=== PATIENT | female | born 1980 | race African-American/Black ===

== ENCOUNTER 2019-01-20 14:08 | Emergency (ER) | payer SELFPAY ==
[~2019-01-20] VITALS: Ht 170.2 cm; Wt 136.1 kg
[2019-01-20 14:14] VITALS: BP 179/109
[2019-01-20] MEDS ORDERED: IBUPROFEN 400 MG TABLET. PO ONE (14:45)
--- NOTE | 2019-01-20 16:24 | PHYS DOC ---
Past Medical History Past Medical History: Hypertension Past Surgical History: Other Additional Past Surgical Histo: ABD MASS REMOVED, RIGHT KNEE TORN MENISCUS Alcohol Use: None Drug Use: None Adult General Chief Complaint Chief Complaint: MECHANICAL FALL HPI HPI Patient is a 38 year old [f__sex] who presents with [] Review of Systems Review of Systems Constitutional: Denies fever or chills [] Eyes: Denies change in visual acuity, redness, or eye pain [] HENT: Denies nasal congestion or sore throat [] Respiratory: Denies cough or shortness of breath [] Cardiovascular: No additional information not addressed in HPI [] GI: Denies abdominal pain, nausea, vomiting, bloody stools or diarrhea [] : Denies dysuria or hematuria [] Musculoskeletal: Denies back pain or joint pain [] Integument: Denies rash or skin lesions [] Neurologic: Denies headache, focal weakness or sensory changes [] Endocrine: Denies polyuria or polydipsia [] All other systems were reviewed and found to be within normal limits, except as documented in this note. Current Medications Current Medications Current Medications Medications (Trade) Dose Ordered Sig/Estephania Start Time Stop Time Status Last Admin Dose Admin Ibuprofen (Motrin) 600 mg 1X ONCE 01/20/19 14:45 01/20/19 14:47 DC 01/20/19 15:42 600 MG Allergies Allergies Allergies Coded Allergies Type Severity Reaction Last Updated Verified No Known Drug Allergies 01/20/19 No Physical Exam Physical Exam Constitutional: Well developed, well nourished, no acute distress, non-toxic appearance. [] HENT: Normocephalic, atraumatic, bilateral external ears normal, oropharynx moist, no oral exudates, nose normal. [] Eyes: PERRLA, EOMI, conjunctiva normal, no discharge. [] Neck: Normal range of motion, no tenderness, supple, no stridor. [] Cardiovascular:Heart rate regular rhythm, no murmur [] Lungs & Thorax: Bilateral breath sounds clear to auscultation [] Abdomen: Bowel sounds normal, soft, no tenderness, no masses, no pulsatile masses. [] Skin: Warm, dry, no erythema, no rash. [] Back: No tenderness, no CVA tenderness. [] Extremities: No tenderness, no cyanosis, no clubbing, ROM intact, no edema. [] Neurologic: Alert and oriented X 3, normal motor function, normal sensory function, no focal deficits noted. [] Psychologic: Affect normal, judgement normal, mood normal. [] Current Patient Data Vital Signs Vital Signs Date Time Temp Pulse Resp B/P (MAP) Pulse Ox O2 Delivery O2 Flow Rate FiO2 01/20/19 14:14 98.2 73 14 179/109 (132) 95 Room Air 98.2 EKG EKG [] Radiology/Procedures Radiology/Procedures [] Course & Med Decision Making Course & Med Decision Making Pertinent Labs and Imaging studies reviewed. (See chart for details) [] Dragon Disclaimer Dragon Disclaimer This electronic medical record was generated, in whole or in part, using a voice recognition dictation system. Departure Departure Impression: Primary Impression: Knee pain, right Additional Impression: Right ankle pain Disposition: HOME, SELF-CARE Condition: STABLE Referrals: NO PCP (PCP) RAISSA WRIGHT MD Patient Instructions: Crutch Use, [id number], Elastic Bandage and RICE, Joint Sprain, Knee Pain Additional Instructions: Tylenol and/or ibuprofen as needed for pain as directed on container. Follow-up with your primary care physician and or orthopedic doctor if symptoms persist or with concerns. Problem Qualifiers SAMMI THOMAS APRN January 20, 2019 16:24
--- NOTE | 2019-01-20 17:23 | RAD ---
Three-view right knee radiographs 01/20/2019 CLINICAL HISTORY: Fall with injury to the right knee. AP, oblique and lateral digital radiographs of the right knee were obtained. No fracture or dislocation right knee is seen. Mild to moderate degenerative changes are seen involving all 3 compartments of the right knee. IMPRESSION: No fracture or dislocation of the right knee is seen. Electronically signed by: Aniket Montoya MD (01/20/2019 5:20 PM) [facility]
--- NOTE | 2019-01-20 17:28 | RAD ---
Three-view right ankle radiographs to include 3 view radiographs of the right foot 01/20/2019 CLINICAL HISTORY: Fall with injury to the right ankle and right foot earlier today. AP, lateral and oblique digital radiographs of the right ankle and right foot were obtained. The right ankle mortise is intact. No fracture or dislocation right ankle is seen. Mild degenerative changes are seen involving the right ankle joint. No fracture or dislocation of the right foot is seen. Mild to moderate mild enthesophyte formation is seen involving the posterior right calcaneus. IMPRESSION: No fracture or dislocation of the right ankle or right foot is seen. Degenerative changes are seen throughout the interphalangeal joints of the right foot along the first MTP joint and tarsometatarsal joints. Electronically signed by: Aniket Montoya MD (01/20/2019 5:25 PM) [facility]
== END 2019-01-20 16:55 | disposition home or self-care (01) ==
LOC: ER 14:08
DX: M25.561 Pain in right knee (principal); M25.571 Pain in right ankle and joints of right foot; I10 Essential (primary) hypertension; W18.39XA Other fall on same level, initial encounter; Y93.89 Activity, other specified; Y92.59 Other trade areas as the place of occurrence of the external cause; Y99.8 Other external cause status
CPT/HCPCS: 73562; 73610; 73630; 99284